=== PATIENT | female | born 1965 | race African-American/Black ===

== ENCOUNTER → 2023-03-26 | Emergency (ER) | payer MEDICAID ==
[~2023-03-26] VITALS: Ht 162.6 cm; Wt 60.0 kg
[~2023-03-26] MED LIST: ACETAMINOPHEN 500MG TABLET PO ONE; DIPHENHYDRAMINE 25MG CAPSULE PO NR; IBUPROFEN 600MG TABLET PO NR; NITROFURANTOIN 100MG M/M CAPSULE PO NR; PROCHLORPERAZINE MALEATE 10MG TABLET PO NR
[2023-03-26 09:54] VITALS: BP 131/99
[2023-03-26 10:18] LABS: BASOPHILS % 0.7 % (0.0-2.0); EOSINOPHILS % 3.2 % (0.0-5.0); HEMATOCRIT. 40.6 % (36.0-48.0); HEMOGLOBIN. 13.4 g/dL (12.0-16.0); LYMPHOCYTES % 39.1 % (20.0-50.0); MEAN CORPUSCULAR HEMOGLOBIN 25.6 pg (28.0-32.0); MEAN CORPUSCULAR VOLUME 77.9 fL (81.0-99.0); PLATELET 273 x1000/uL (130-400); RED BLOOD CELL COUNT 5.21 mill/uL (4.2-5.4); RED CELL DISTRIBUTION WIDTH 16.9 % (11.6-14.6)
[2023-03-26 10:28] LABS: CHLORIDE 106 mEq/L (98-107)
[2023-03-26 10:40] LABS: ETHANOL BLOOD < 10 mg/dL
[2023-03-26 13:06] LABS: CLARITY URINE CLEAR (CLEAR); COLOR URINE YELLOW (YELLOW); KETONES URINE NEGATIVE (NEGATIVE); LEUKOCYTE ESTERASE URINE NEGATIVE (NEGATIVE); NITRITE URINE POSITIVE (NEGATIVE); OCCULT BLOOD URINE NEGATIVE (NEGATIVE); PROTEIN URINE NEGATIVE (NEGATIVE); UROBILINOGEN URINE 0.2 E.U./dL (0.2-1.0)
[2023-03-26 13:22] LABS: *AMPHETAMINES SCREEN URINE NEGATIVE (NEGATIVE); *BARBITURATES SCREEN URINE NEGATIVE (NEGATIVE); *BENZODIAZEPINES SCREEN URINE NEGATIVE (NEGATIVE); *COCAINE SCREEN URINE NEGATIVE (NEGATIVE); CANNABINOID URINE SCREEN NEGATIVE (NEGATIVE); METHADONE URINE SCREEN NEGATIVE (NEGATIVE); OPIATES URINE SCREEN NEGATIVE (NEGATIVE); PHENCYCLIDINE URINE SCREEN NEGATIVE (NEGATIVE)
== END ==
LOC: ER 09:46
DX: R51.9 Headache, unspecified (principal)
CPT/HCPCS: 36415; 70450; 71045; 80053; 80305; 80320; 81003; 84443; 84484; 85025; 99285; Q0163; Q0164; G0480